=== PATIENT | male | born 1970 | race Caucasian/White ===

== ENCOUNTER 2016-10-31 13:35 | Emergency (ER) | payer SELFPAY ==
--- NOTE | 2016-10-31 14:03 | Emergency Department Report ---
Chief Complaint: Abdominal Pain Stated Complaint: FEVER Time Seen by Provider: 10/31/16 14:00 - HPI History of Present Illness: PT was sent to the ED for evaluation of LLQ abd pain (onset 0100) and fever. PT went to [facility] and was given a pill. PT rates his pain 7/10. PT does not have a hx of similar symptoms - ROS Review of Systems: - vomiting + diarrhea x 2 days + headache - Exam Vital Signs: Vital Signs 10/31/16 13:57 Temperature 99.9 F H Pulse Rate 64 Respiratory 18 Rate Blood Pressure 130/82 O2 Sat by Pulse 96 Oximetry Physical Exam: male no cva tenderness carlos abd soft, LLQ ttp MSE screening note: Focused history and physical exam performed. Due to findings the following was ordered: labs ED Disposition for MSE Condition: Stable
[2016-10-31 14:54] LABS: Bilirubin,Urine NEG (Negative); Blood,Urine SM (Negative); Ketones,Urine NEG (Negative); Leukocyte Esterase,Urine NEG (Negative); Mucus,Urine 1+ /HPF; Nitrite,Urine NEG (Negative)
[2016-10-31 15:00] LABS: Basophils % (Auto) 0.3 % (0.0-1.8); Hematocrit 47.7 % (35.5-45.6); Hemoglobin 16.3 gm/dl (11.8-15.2); Mean Corpuscular HGB Conc 34 % (32-34); Mean Corpuscular Hemoglobin 34 pg (28-32); Mean Corpuscular Volume 98 fl (84-94); Platelet Count 168 K/mm3 (140-440); Red Blood Count 4.88 M/mm3 (3.65-5.03)
[2016-10-31 15:16] LABS: Alanine Aminotransferase 44 units/L (7-56); Albumin 4.4 g/dL (3.9-5); Albumin/Globulin Ratio 1.3 %; Alkaline Phosphatase 82 units/L (35-129); Anion Gap 27 mmol/L; BUN/Creatinine Ratio 12.72; Blood Urea Nitrogen 14 mg/dL (9-20); Carbon Dioxide 15 mmol/L (22-30); Chloride 98.3 mmol/L (98-107); Glucose 99 mg/dL (75-100); Lipase 26 units/L (13-60); Potassium 3.7 mmol/L (3.6-5.0); Sodium 137 mmol/L (137-145); Total Protein 7.7 g/dL (6.3-8.2)
[2016-10-31] MEDS ORDERED: NACL 0.9% 1000 ML 1,000 ML IV ONE (19:00)
[2016-10-31] MEDS ORDERED: ZOFRAN IV ONE (19:01)
[2016-10-31] MEDS ORDERED: MORPHINE ONE (19:34)
[2016-10-31] MEDS ORDERED: MORPHINE IV ONE (19:45)
--- NOTE | 2016-10-31 20:28 | Emergency Department Report ---
HPI - General Chief Complaint: Abdominal Pain Time Seen by Provider: 10/31/16 14:00 - HPI HPI: PT was sent to the ED for evaluation of LLQ abd pain (onset 0100) and fever. PT went to [facility] and was given a pill. PT rates his pain 10/23. PT does not have a hx of similar symptoms - ROS Review of Systems: - vomiting + diarrhea x 2 days + headache ED Past Medical Hx - Past Medical History Previous Medical History?: No - Surgical History Past Surgical History?: No - Social History Smoking Status: Current Every Day Smoker Substance Use Type: Alcohol, Non Opiate Pain - Medications Home Medications: Home Medications Medication Instructions Recorded Confirmed Last Taken Type Ondansetron [Zofran Odt] 4 mg PO Q8HR #14 tab.rapdis 10/31/16 Unknown Rx ED Review of Systems ROS: Stated complaint: FEVER Other details as noted in HPI Physical Exam - Physical Exam Vital Signs: Vital Signs 10/31/16 10/31/16 10/31/16 13:57 17:25 20:15 Temperature 99.9 F H Pulse Rate 64 60 Respiratory 18 18 18 Rate Blood Pressure 130/82 Blood Pressure 139/94 [Right] O2 Sat by Pulse 96 100 Oximetry ED Course Vital Signs 10/31/16 10/31/16 10/31/16 13:57 17:25 20:15 Temperature 99.9 F H Pulse Rate 64 60 Respiratory 18 18 18 Rate Blood Pressure 130/82 Blood Pressure 139/94 [Right] O2 Sat by Pulse 96 100 Oximetry ED Medical Decision Making - Lab Data Result diagrams: 10/31/16 14:40 10/31/16 14:40 Critical care attestation.: If time is entered above; I have spent that time in minutes in the direct care of this critically ill patient, excluding procedure time. ED Disposition Clinical Impression: Gastroenteritis Disposition: DC-01 TO HOME OR SELFCARE Is pt being admited?: No Condition: Stable Prescriptions: Ondansetron [Zofran Odt] 4 mg PO Q8HR #14 tab.rapdis Referrals: PRIMARY CARE, [Primary Care Provider] - 3-5 Days
[2016-10-31] MEDS ORDERED: NACL ONE (21:09)
--- NOTE | 2016-10-31 22:14 | Cat Scan Report ---
FINAL REPORT EXAM: CT ABDOMEN PELVIS W CON HISTORY: pain abd TECHNIQUE: Standard enhanced CT of the abdomen and pelvis. Delayed imaging through the kidneys and bladder were obtained. Coronal and sagittal reconstruction was also performed. Contrast: 100 mL Omnipaque 300 given IV. PRIORS: None. FINDINGS: There is nonspecific mild mucosal enhancement in the ascending colon suggesting an inflammatory process such as viral enteritis. No wall thickening or surrounding inflammation is seen. No diverticuli in this area are seen. Within the abdomen, the liver is mildly decreased in density throughout consistent with mild fatty metamorphosis. The spleen, pancreas, gallbladder, adrenal glands, and kidneys are unremarkable. No evidence for retroperitoneal or pelvic lymphadenopathy is seen. The bowel loops have normal caliber. No soft tissue mass, fluid collection, inflammatory change, or free air is seen within the abdomen or pelvis. The appendix is normal. Within the pelvis, the bladder is unremarkable. The prostate is normal. No evidence for mass or lymphadenopathy is seen in the pelvis. Images through the upper abdomen include the lung bases which are expanded and clear. Bony structures show no focal abnormalities and are intact. IMPRESSION: 1. Mild mucosal enhancement in the ascending colon which is nonspecific but can be seen with viral enteritis. 2. Mild fatty liver.
[2016-10-31 22:34] VITALS: BP 130/89
== END 2016-10-31 22:35 | disposition home or self-care (01) ==
LOC: ED 13:35
DX: K52.9 Noninfective gastroenteritis and colitis, unspecified (principal); F17.210 Nicotine dependence, cigarettes, uncomplicated
CPT/HCPCS: 36415; 74177; 80053; 81001; 83690; 85025; 96361; 96374; 96375; 99284; J2270; J2405; J7030; Q9967